=== PATIENT | male | born 1980 | race Caucasian/White ===

== ENCOUNTER 2023-10-27 07:49 | Outpatient (CLI) | payer OTHER | END 2023-10-27 07:58 | disposition home or self-care (01) | LOC: SONOGRAMA 07:49 | DX: K76.0 Fatty (change of) liver, not elsewhere classified (principal) ==

== ENCOUNTER 2024-09-27 11:34 | Emergency (ER) | payer OTHER ==
[~2024-09-27] VITALS: Ht 177.8 cm; Wt 79.4 kg
[2024-09-27 13:36] VITALS: BP 125/35; O2SAT 100
== END 2024-09-27 13:56 | disposition home or self-care (01) ==
LOC: ER 11:34
DX: S81.011A Laceration without foreign body, right knee, initial encounter (principal); X58.XXXA Exposure to other specified factors, initial encounter; Y93.89 Activity, other specified; Y92.89 Other specified places as the place of occurrence of the external cause; Y99.8 Other external cause status